=== PATIENT | female | born 1990 | race Caucasian/White ===

== ENCOUNTER 2021-02-14 07:38 | Inpatient (IN) ==
[2021-02-14] MEDS ORDERED: OXYTOCIN 30 UNITS/500 ML BAG IV PRN ×3 (07:40→22:33)
[2021-02-14 08:01] LABS: Hematocrit (blood only) 40.3 % (37-47); Mean Corpuscular Hemoglobin 29.8 pg (25-34); Mean Corpuscular Hgb Conc 34.7 g/dL (32-36); Mean Corpuscular Volume 85.7 fL (80-100); Mean Platelet Volume 11.3 fL (7.4-10.4); Platelet Count 212 K/uL (130-400); RDW Coefficient of Variation 13.7 % (11.5-14.5); RDW Standard Deviation 42.9 fL (36.4-46.3); White Blood Count 8.61 K/uL (4.8-10.8)
[2021-02-14] MEDS: LACTATED RINGER'S 1,000 ML IV PRN ×4 (09:18→20:37)
--- NOTE | 2021-02-14 09:20 | History & Physical Report ---
Date of Service February 14, 2021 Assessment & Plan (1) with 39 completed weeks gestation: (2) PUPP (pruritic urticarial papules and plaques of ): (3) Unfavorable cervix in term : Admission and Anticipated Discharge Date Admission Date: February 14, 2021 Patient is being admitted for induction because of pupps that is unrelenting and not responsive to outpatient therapy. She is 39 weeks by good dating. Cx unfavorable so cervical murphy placed and will start pit at the same time. fetus category one. epidural on demand. arom as indicated. Anticipae . History of Present Illness Chief Complaint: induction Primary Care Provider: JACKIE García Patient is a 31yowf with iup at 39 0/7 weeks who presents to labor and delivery for elective induction for pupps. Patient for the last two weeks has had a worsening very itchy rash. It is not on the palms or soles but just about everywhere else particularly on the thighs and belly. It is red, raised and confluent on the thigs particularly. Also petechial on the abdomen, upper arms, lower legs. Nothing she has used to help has been helpful. She is scratching herself raw. She tried taking benadryl, but she felt it made the baby have decreased activity and really worried her. She had bile acids drawn which were negative. I suspect this is a pupps type rash. Since she is 39 weeks I offered her induction and she has accepted. The has been otherwise uncomplicated. She does have an unfavorable cervix labs--O+/ab-/ri/rprnr/hepb-/hiv-/gc/ct-/ cf/sma neg/panorama low risk/gbs neg/ afp neg Allergies Allergy/AdvReac Type Severity Reaction Status Date / Time neomycin Allergy Intermediate itchy eyes Verified 02/14/21 07:51 Home Medications Medication Instructions Recorded Confirmed Type PNV cmb#95-ferrous fumarate-FA 1 tab PO DAILY 02/04/21 02/14/21 History [] escitalopram oxalate [Lexapro] 5 mg PO DAILY 02/04/21 02/14/21 History hydrocortisone 1 % topical cream 1 applic TOPICAL QID PRN 02/13/21 02/14/21 History Patient History Medical History Chemical Common migraine without aura Depression with anxiety Ectopic Hx of varicella Surgical History History of ovarian cystectomy History of unilateral salpingectomy Family History Denies family history of Ovarian cancer Breast cancer Colorectal cancer Social History Smoking Status: Never smoker Second Hand Exposure: No; Hx Alcohol Use: No Hx Substance Use: No Preferred Language: Hebrew Communication Ability: Effective 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 Required: No Beliefs That Will Affect Care: None marital status: marital status details: Augusto Luu (33) [phone] Current Living Situation: Spouse Current Living Situation Comment: lives with spouse, 2 dogs, 1 cat, does not change litter current occupational status: employed current occupation: [employer] Other Information That Helps Us Care for You: No Feels Safe at Home: Yes Safety Concerns: Feels Safe At This Time Assistive Devices: Glasses OB History g1--12/13--right ectopic with salpingectomy g2--05/19--sab g3--current [employer] History noncontributory Physical Exam Constitutional: WD/WN, vitals as above Skin: rash over thighs, belly. lower ext and arms--some red raised and confluent, others petechial. excoriations all over body. Psychiatric: A+Ox3, euthymic affect Genitourinary: cx--50/-2/mid/mod toco--skylar efm--130s with mod variabiity, accels to 150s, no decels speculum placed and cervix visualized, murphy bulb placed through cervix and balloon inflated with 30cc sterile water. tolerated well. Results & Data ([facility]) Vital Signs (Past 12 Hours) Vital Signs Temp Pulse Resp BP 02/14/21 08:07 37 C 20 02/14/21 07:49 104 H 123/86 Code Status & VTE Plan VTE Prophylaxis Plan VTE Prophylaxis will be ordered: No Coding Level of Care Code None Diagnoses with 39 completed weeks gestation Z3A.39 PUPP (pruritic urticarial papules and plaques of ) O26.86 Unfavorable cervix in term O34.40
--- NOTE | 2021-02-14 12:39 | Labor Progress Brief Note ---
Date of Service February 14, 2021 Subjective Patient was up to the br and then got back into bed and decel to 70s noted. murphy bulb fell out Assessment & Plan (1) with 39 completed weeks gestation: Admission and Anticipated Discharge Date Admission Date: February 14, 2021 episode of decel has resolved and both resolved after contractions spaced. reassuring now. Plan to keep pit off for now. will get epidural, then plan arom and will see what happens. Will continue to monitor baby closely. movement clearly heard after recovery. Physical Exam Constitutional: WD/WN, vitals as above Psychiatric: A+Ox3, euthymic affect Genitourinary: cx--/-2 toco--episode of tachysystole just when back from the BR is likely cause of decel, has had intermittent episodes of tachysystole when strip reviewed. pit turned off, o2 on , position changed, eventually to hands/knees efm--mostly category one strip , was 130s with mod variability, accels to 150s. has had two decels after episodes of tachystystole, first was at 10:30 for about 2-3 minutes with spontaneous resolution. the second episode lasted about 5 minutes. now fht in 130s with mod variability Results & Data ([facility]) Vital Signs (Past 12 Hours) Vital Signs Temp Pulse Resp BP Pulse Ox 02/14/21 12:31 75 100 02/14/21 12:26 98 H 100 02/14/21 12:21 106 H 98 02/14/21 12:12 36.8 C 78 18 135/90 02/14/21 11:09 84 116/70 02/14/21 10:20 92 H 140/85 02/14/21 09:19 90 132/90 02/14/21 08:07 37 C 20 02/14/21 07:49 104 H 123/86 Coding Level of Care Code None Diagnoses with 39 completed weeks gestation Z3A.39
[2021-02-14] MEDS ORDERED: SODIUM CHLORIDE 0.9% INJ 10 ML VIAL ONE (13:49)
[2021-02-14] MEDS ORDERED: BUPIVACAINE 0.25% 30 ML VIAL ONE ×2 (13:49→19:04)
[2021-02-14] MEDS ORDERED: ePHEDrine sulfate 50 MG/ML AMP ONE (13:49)
[2021-02-14] MEDS ORDERED: fentaNYL citrate 100 MCG/2 ML VIAL ONE (13:50)
[2021-02-14] MEDS ORDERED: fentaNYL 2MCG/ML ROPIVACAINE 1.25MG/ML 100 ML BAG EPI ONE (13:50)
[2021-02-14] MEDS ORDERED: fentaNYL 2MCG/ML ROPIVACAINE 1.25MG/ML 100 ML BAG EPI PRN (13:56)
[2021-02-14] MEDS ORDERED: ONDANSETRON INJ 2 MG/ML 2 ML VIAL IV PRN (13:56)
[2021-02-14] MEDS ORDERED: NALOXONE HCL 1 MG in SODIUM CHLORIDE 0.9% 1000ML 1,000 ML IV PRN (13:56)
[2021-02-14] MEDS ORDERED: NALOXONE HCL 0.4 MG/1 ML VIAL/CARP IV PRN (13:56)
[2021-02-14] MEDS ORDERED: ePHEDrine sulfate 50 MG/ML AMP IV PRN (13:56)
[2021-02-14] MEDS ORDERED: diphenhydrAMINE 50 MG/ML VIAL IV PRN (13:56)
--- NOTE | 2021-02-14 14:01 | Anesthesiology Consultation ---
Date of Service February 14, 2021 Assessment & Plan (1) Encounter for pre-operative examination: Chart Review Chart Review: Patient NOT seen in Pre Admission Testing and Acceptable Risk for Labor Epidural Consults Requested none History Height/Weight Height: 5 ft 5 in Weight: 92.533 kg Allergies Allergy/AdvReac Type Severity Reaction Status Date / Time neomycin Allergy Intermediate itchy eyes Verified 02/14/21 07:51 Medications Home Medications Medication Instructions Recorded Confirmed Last Taken PNV cmb#95-ferrous fumarate-FA 1 tab PO DAILY 02/04/21 02/14/21 02/14/21 [] escitalopram oxalate [Lexapro] 5 mg PO DAILY 02/04/21 02/14/21 02/14/21 hydrocortisone 1 % topical cream 1 applic TOPICAL QID PRN 02/13/21 02/14/21 Unknown Active Medications Generic Name Dose Route Start Last Admin Trade Name Freq PRN Reason Stop Dose Admin Lactated Ringer's 1,000 mls @ 125 mls/hr 02/14/21 07:40 02/14/21 13:36 Lr IV 02/16/21 07:39 999 mls/hr .Q8H PRN Infusion L&D Protocol Protocol Oxytocin 30 units in 500 mls @ 0 mls/hr 02/14/21 07:40 02/14/21 12:23 Pitocin IV 02/16/21 07:39 0 units/hr .Q0M PRN 0 mls/hr Labor Induction/Augmentation Titration Protocol 0 UNITS/HR Past Medical History Medical History Chemical Common migraine without aura Depression with anxiety Ectopic Hx of varicella Exercise / Class Metabolic Activity II 4-5 Yardwork/Stairs/Walk up hill Past Family History Family History Denies family history of Ovarian cancer Breast cancer Colorectal cancer Past Surgical History Surgical History History of ovarian cystectomy History of unilateral salpingectomy Past Anesthesia History No Hx of Anesthesia Complications and No Family Hx of Anesthesia Complications History of PONV No Hx of PONV and No Hx of Motion Sickness Social History Smoking Status: Never smoker Do You Dip or Chew Tobacco: No Hx Alcohol Use: No Hx Substance Use: No substance use type: does not use Physical Exam Vital Signs Last Vital Signs Temp 36.8 C 02/14/21 12:12 Pulse 77 02/14/21 13:54 Resp 18 02/14/21 12:12 BP 141/84 H 02/14/21 13:54 Pulse Ox 100 02/14/21 13:41 Testing Laboratory Results 02/14/21 07:52
--- NOTE | 2021-02-14 16:35 | Labor Progress Brief Note ---
Date of Service February 14, 2021 Subjective comfortable with epidural Assessment & Plan (1) with 39 completed weeks gestation: Admission and Anticipated Discharge Date Admission Date: February 14, 2021 continue current management. Gentle pit until good contraction pattern. fetus category one. anticipate . Physical Exam Constitutional: WD/WN, vitals as above Psychiatric: A+Ox3, euthymic affect Genitourinary: cx--5/80/-2, when went to arom, irrgularity to the membranes felt, not pulsatile and did not feel like hand. Can feel cephalic. BSUS--no cord or anything in front of the head. can see hand up by face on reexam--still feel, not pulsatile, just feels irregular and a bit thicker arom not in the thickened area--clear fluid, large mucous passed, unable to palpate any abnl after arom, no blood noted, ? feeling mucous toco--irregular contractions, pit at 1 efm--120 with mod varibiltiy, accels present, no further decels Results & Data ([facility]) Vital Signs (Past 12 Hours) Vital Signs Temp Pulse Resp BP Pulse Ox 02/14/21 16:25 75 130/81 02/14/21 16:24 72 100 02/14/21 16:19 84 121/95 100 02/14/21 16:14 79 133/86 95 02/14/21 16:12 76 91 02/14/21 16:10 73 134/80 02/14/21 16:09 86 100 02/14/21 16:05 75 131/83 02/14/21 16:04 77 99 02/14/21 15:59 74 131/80 99 02/14/21 15:54 81 133/85 98 02/14/21 15:49 74 133/82 100 02/14/21 15:44 87 125/81 98 02/14/21 15:39 78 130/88 98 02/14/21 15:34 74 130/88 99 02/14/21 15:29 88 128/85 99 02/14/21 15:24 78 135/87 100 02/14/21 15:19 70 128/80 99 02/14/21 15:17 79 90 02/14/21 15:14 77 145/86 H 100 02/14/21 15:10 68 136/83 03/18/21 15:09 74 99 03/18/21 15:05 37.1 C 16 1821 15:04 84 99 18/21 15:03 82 135/78 18/21 14:59 71 139/80 99 18/21 14:54 72 133/87 100 18/21 14:50 76 130/83 18/21 14:49 81 100 /18/21 14:44 77 130/86 99 18/21 14:39 83 99 18/21 14:38 78 127/80 18/21 14:36 73 135/80 18/21 14:34 79 130/83 100 18/21 14:32 81 128/83 18/ 14:30 81 127/81 18/21 14:29 80 100 18/21 14:28 78 125/82 18/21 14:27 82 130/82 18/21 14:24 90 131/84 100 18/21 14:22 92 H 131/84 18/21 14:19 104 H 100 18/21 14:14 88 100 18/21 14:09 91 H 100 18/21 13:54 77 141/84 H 18/21 13:41 85 100 18/21 13:36 76 100 /18/21 13:31 75 100 /18/21 13:26 77 100 /18/21 13:21 76 100 /18/21 13:16 74 100 /18/21 13:11 76 100 18/21 13:06 86 99 18/21 13:01 75 100 03/18/21 12:56 77 100 03/18/21 12:51 78 100 03/18/21 12:46 83 100 /18/21 12:41 81 100 /18/21 12:36 80 100 /18/21 12:31 75 100 03/18/21 12:26 98 H 100 /18/21 12:21 106 H 98 /18/21 12:12 36.8 C 78 18 135/90 18/21 11:09 84 116/70 18/21 10:20 92 H 140/85 03/18/21 09:19 90 132/90 02/14/21 08:07 37 C 20 02/14/21 07:49 104 H 123/86 Coding Level of Care Code None Diagnoses with 39 completed weeks gestation Z3A.39
[2021-02-14] MEDS ORDERED: NURSING L&D Epidural Breakthrough Pain Update ONE ×2 (18:41→18:55)
--- NOTE | 2021-02-14 19:20 | Communication Note ---
Date of Service: February 14, 2021 pain increased. bolused 8ml of 0.25% bup in divided doses. vss. pain improved
--- NOTE | 2021-02-14 19:32 | Labor Progress Brief Note ---
Date of Service February 14, 2021 Subjective Got epidural redosed and now comfortable Assessment & Plan (1) with 39 completed weeks gestation: Admission and Anticipated Discharge Date Admission Date: February 14, 2021 making progress, recheck in 1 hr. May need iupc if no signficant change at that time. fetus category one. Physical Exam Constitutional: WD/WN, vitals as above Psychiatric: A+Ox3, euthymic affect Genitourinary: cx--6+90/-1 toco--q2-3min, pit at 7 efm--120s with mod variability, accels to 150s, no decels Results & Data ([facility]) Vital Signs (Past 12 Hours) Vital Signs Temp Pulse Resp BP Pulse Ox 02/14/21 19:24 77 153/100 H 100 02/14/21 19:23 81 145/98 H 02/14/21 19:20 76 145/95 H 02/14/21 19:19 81 100 02/14/21 19:14 78 100 02/14/21 19:12 91 H 151/95 H 02/14/21 19:11 77 151/93 H 02/14/21 19:09 90 100 02/14/21 19:04 85 100 02/14/21 19:00 36.9 C 20 02/14/21 18:59 78 100 02/14/21 18:55 71 141/95 H 02/14/21 18:54 72 100 02/14/21 18:49 76 100 02/14/21 18:44 74 100 02/14/21 18:40 71 135/93 02/14/21 18:39 72 100 02/14/21 18:34 72 100 02/14/21 18:29 82 100 02/14/21 18:25 71 141/90 H 02/14/21 18:24 77 100 02/14/21 18:19 73 100 02/14/21 18:14 82 99 02/14/21 18:11 73 147/95 H 02/14/21 18:09 84 100 02/14/21 18:04 71 100 02/14/21 18:03 22 02/14/21 17:59 91 H 100 02/14/21 17:54 92 H 142/88 H 100 02/14/21 17:49 91 H 132/85 99 03/18/21 17:44 91 H 124/80 100 03/18/21 17:39 98 H 130/83 99 /18/21 17:34 103 H 142/86 H 99 /18/21 17:29 106 H 137/89 100 0318/21 17:24 93 H 125/87 98 /18/21 17:20 85 127/86 0318/21 17:19 81 99 18/21 17:14 88 132/85 99 18/21 17:09 97 H 127/82 98 18/21 17:04 85 124/79 99 18/21 17:00 90 126/83 18/21 16:59 89 100 /18/21 16:54 100 H 132/82 100 18/21 16:50 96 H 119/72 18/21 16:49 92 H 100 18/21 16:44 98 H 130/81 100 18/21 16:40 87 128/77 18/21 16:39 88 100 18/21 16:35 94 H 129/83 18/21 16:34 96 H 100 18/21 16:29 86 133/84 100 /18/21 16:25 75 130/81 18/21 16:24 72 100 18/21 16:19 84 121/95 100 18/21 16:14 79 133/86 95 18/21 16:12 76 91 18/21 16:10 73 134/80 18/21 16:09 86 100 18/21 16:05 75 131/83 18/21 16:04 77 99 18/21 15:59 74 131/80 99 03/18/21 15:54 81 133/85 98 /18/21 15:49 74 133/82 100 18/21 15:44 87 125/81 98 /18/21 15:39 78 130/88 98 03/18/21 15:34 74 130/88 99 /18/21 15:29 88 128/85 99 03/18/21 15:24 78 135/87 100 18/21 15:19 70 128/80 99 18/21 15:17 79 90 18/21 15:14 77 145/86 H 100 03/18/21 15:10 68 136/83 03/18/21 15:09 74 99 03/18/21 15:05 37.1 C 16 21 15:04 84 99 0318/21 15:03 82 135/78 18/21 14:59 71 139/80 99 /18/21 14:54 72 133/87 100 /18/21 14:50 76 130/83 18/21 14:49 81 100 03/18/21 14:44 77 130/86 99 /18/21 14:39 83 99 /18/21 14:38 78 127/80 /18/21 14:36 73 135/80 /18/21 14:34 79 130/83 100 /18/21 14:32 81 128/83 18/21 14:30 81 127/81 18/21 14:29 80 100 /18/21 14:28 78 125/82 18/21 14:27 82 130/82 18/21 14:24 90 131/84 100 03/18/21 14:22 92 H 131/84 18/21 14:19 104 H 100 18/21 14:14 88 100 03/18/21 14:09 91 H 100 18/21 13:54 77 141/84 H 18/21 13:41 85 100 /18/21 13:36 76 100 03/18/21 13:31 75 100 03/18/21 13:26 77 100 03/18/21 13:21 76 100 03/18/21 13:16 74 100 03/18/21 13:11 76 100 03/18/21 13:06 86 99 03/18/21 13:01 75 100 03/18/21 12:56 77 100 03/18/21 12:51 78 100 03/18/21 12:46 83 100 03/18/21 12:41 81 100 03/18/21 12:36 80 100 03/18/21 12:31 75 100 03/18/21 12:26 98 H 100 03/18/21 12:21 106 H 98 /18/21 12:12 36.8 C 78 18 135/90 18/21 11:09 84 116/70 03/18/21 10:20 92 H 140/85 02/14/21 09:19 90 132/90 02/14/21 08:07 37 C 20 02/14/21 07:49 104 H 123/86 Coding Level of Care Code None Diagnoses with 39 completed weeks gestation Z3A.39
[2021-02-14] MEDS ORDERED: TERBUTALINE SULFATE 1 MG/ML VIAL ONE (19:36)
--- NOTE | 2021-02-14 20:56 | Labor Progress Brief Note ---
Date of Service February 14, 2021 Subjective comfortable Assessment & Plan (1) with 39 completed weeks gestation: Admission and Anticipated Discharge Date Admission Date: February 14, 2021 labor down for 30 min and then start pushing. Fetus reassuring. anticipate . Physical Exam Constitutional: WD/WN, vitals as above Psychiatric: A+Ox3, euthymic affect Genitourinary: cx--c/c/+1-2 toco==q 2-3min, pit at 8 efm--120s with mod variability, accels to 150s, ? early decel Results & Data ([facility]) Vital Signs (Past 12 Hours) Vital Signs Temp Pulse Resp BP Pulse Ox 02/14/21 20:51 113 H 92 02/14/21 20:49 106 H 99 02/14/21 20:44 78 100 02/14/21 20:39 74 100 02/14/21 20:34 77 100 02/14/21 20:29 76 100 02/14/21 20:24 76 144/90 H 100 02/14/21 20:19 77 100 02/14/21 20:14 83 100 02/14/21 20:10 79 133/83 02/14/21 20:09 85 100 02/14/21 20:04 98 H 98 02/14/21 20:02 18 02/14/21 19:59 93 H 100 02/14/21 19:56 104 H 137/88 02/14/21 19:54 98 H 100 02/14/21 19:50 87 155/85 H 02/14/21 19:49 88 100 02/14/21 19:47 88 90 02/14/21 19:44 94 H 100 02/14/21 19:40 86 145/85 H 02/14/21 19:39 87 100 02/14/21 19:34 73 100 02/14/21 19:29 77 100 02/14/21 19:24 77 153/100 H 100 02/14/21 19:23 81 145/98 H 02/14/21 19:20 76 145/95 H 02/14/21 19:19 81 100 02/14/21 19:14 78 100 02/14/21 19:12 91 H 151/95 H 02/14/21 19:11 77 151/93 H 03/18/21 19:09 90 100 03/18/21 19:04 85 100 18/21 19:00 36.9 C 20 1821 18:59 78 100 18/21 18:55 71 141/95 H 18/21 18:54 72 100 18/21 18:49 76 100 18/21 18:44 74 100 18/21 18:40 71 135/93 18/21 18:39 72 100 1821 18:34 72 100 18/21 18:29 82 100 18/21 18:25 71 141/90 H 1821 18:24 77 100 18/21 18:19 73 100 18/21 18:14 82 99 1821 18:11 73 147/95 H 1821 18:09 84 100 1821 18:04 71 100 1821 18:03 22 1821 17:59 91 H 100 1821 17:54 92 H 142/88 H 100 1821 17:49 91 H 132/85 99 18/21 17:44 91 H 124/80 100 18/21 17:39 98 H 130/83 99 18/21 17:34 103 H 142/86 H 99 18/21 17:29 106 H 137/89 100 18/21 17:24 93 H 125/87 98 18/21 17:20 85 127/86 18/21 17:19 81 99 18/21 17:14 88 132/85 99 1821 17:09 97 H 127/82 98 1821 17:04 85 20 124/79 99 18/21 17:00 90 126/83 18/21 16:59 89 100 18/21 16:54 100 H 132/82 100 18/21 16:50 96 H 119/72 18/21 16:49 92 H 100 18/21 16:44 98 H 130/81 100 18/21 16:40 87 128/77 18/21 16:39 88 100 18/21 16:35 94 H 129/83 18/21 16:34 96 H 100 03/18/21 16:29 86 133/84 100 03/18/21 16:25 75 130/81 03/18/21 16:24 72 100 03/18/21 16:19 84 121/95 100 /18/21 16:14 79 133/86 95 /18/21 16:12 76 91 18/21 16:10 73 134/80 /18/21 16:09 86 100 /18/21 16:05 75 131/83 18/21 16:04 77 99 /18/21 16:03 18 /18/21 15:59 74 131/80 99 03/18/21 15:54 81 133/85 98 /18/21 15:49 74 133/82 100 /18/21 15:44 87 125/81 98 /18/21 15:39 78 130/88 98 /18/21 15:34 74 130/88 99 /18/21 15:29 88 128/85 99 /18/21 15:24 78 135/87 100 18/21 15:19 70 128/80 99 /18/21 15:17 79 90 18/21 15:14 77 145/86 H 100 18/21 15:10 68 136/83 18/21 15:09 74 99 18/21 15:05 37.1 C 16 21 15:04 84 99 18/21 15:03 82 135/78 /18/21 14:59 71 139/80 99 /18/21 14:54 72 133/87 100 /18/21 14:50 76 130/83 /18/21 14:49 81 100 /18/21 14:44 77 130/86 99 /18/21 14:39 83 99 /18/21 14:38 78 127/80 03/18/21 14:36 73 135/80 03/18/21 14:34 79 130/83 100 03/18/21 14:32 81 128/83 03/18/21 14:30 81 127/81 03/18/21 14:29 80 100 03/18/21 14:28 78 125/82 03/18/21 14:27 82 130/82 03/18/21 14:24 90 131/84 100 03/18/21 14:22 92 H 131/84 02/14/21 14:19 104 H 100 02/14/21 14:14 88 100 02/14/21 14:09 91 H 100 02/14/21 13:54 77 141/84 H 02/14/21 13:41 85 100 02/14/21 13:36 76 100 02/14/21 13:31 75 100 02/14/21 13:26 77 100 02/14/21 13:21 76 100 02/14/21 13:16 74 100 02/14/21 13:11 76 100 02/14/21 13:06 86 99 02/14/21 13:01 75 100 02/14/21 12:56 77 100 02/14/21 12:51 78 100 02/14/21 12:46 83 100 02/14/21 12:41 81 100 02/14/21 12:36 80 100 02/14/21 12:31 75 100 02/14/21 12:26 98 H 100 02/14/21 12:21 106 H 98 02/14/21 12:12 36.8 C 78 18 135/90 02/14/21 11:09 84 116/70 02/14/21 10:20 92 H 140/85 02/14/21 09:19 90 132/90 Coding Level of Care Code None Diagnoses with 39 completed weeks gestation Z3A.39
[2021-02-14] MEDS ORDERED: ACETAMINOPHEN 325 MG TAB PO PRN (22:08)
--- NOTE | 2021-02-14 22:16 | Delivery Summary ---
Vaginal Delivery Summary Date of Service February 14, 2021 Pre-operative Diagnosis: at 39 weeks severe pupps Post-operative Diagnosis: same Procedure: murphy for cervical ripening pitocin induction epidural arom second degree and bilateral labial lacerations and repair EBL: 400cc Anesthesia: epidural Procedure: The patient pushed for about 20 min to deliver a viable male infant in doa position, restituted to angel. The nose and mouth were bulb suctioned on the perineum and the rest of the infant was then delivered without difficulty. The baby was vigorous. The nose and mouth were again bulb suctioned and the was placed in the maternal abdomen for drying and attention. Cord was clamped and cut at one minute of life. Cord blood and segment obtained. Placenta delivered spontaneous, intact with a three vessel cord. Cervix/sulci/rectum were intact. A second degree perineal laceration and bilateral labial lacs were repaired in the normal standard fashion. Hemostasis obtained with dilute pitocin and fundal massage. Apgars were 8/9. Mother and baby doing well at the end of the delivery. ON examination of the placenta, some placental tissue appeared to be located in between the membranes coming off from the side of the placenta body proper. This did not actually appear that it had been attached to the uterine wall, but was contained between the membranes. I suspect this was what I was palpating just prior to arom. Vaginal Delivery Summary [facility] Vaginal Delivery Charge Delivery Type Details:
[2021-02-14] MEDS ORDERED: HYDROCORTISONE ACETATE 25 MG SUPP PR PRN (22:33)
[2021-02-14] MEDS ORDERED: SUPERCREAM 0.870% 15 GM JAR EXT PRN (22:33)
[2021-02-14] MEDS ORDERED: bisacodyL 10 MG SUPP PR PRN (22:33)
[2021-02-14] MEDS ORDERED: oxyCODONE/ACETAMINOPHEN 5mg/325mg TAB PO PRN (22:33)
[2021-02-14] MEDS ORDERED: DIPHTHERIA/TETANUS/PERTUSSIS 0.5 ML SYR/VIAL IM ONE (22:33)
[2021-02-14] MEDS ORDERED: BENZOCAINE 20% AER SPR 82.5 GM CAN EXT PRN (22:33)
--- NOTE | 2021-02-14 22:50 | Communication Note ---
Date of Service: February 14, 2021 Note made of pressures that have been creeping up over the last few hours. First noted around 6pm. 140-150/90s. Rare sbp of 160. Patient has no s/s of pet. Will check labs and continue to monitor.
[2021-02-14 23:21] LABS: Hematocrit (blood only) 36.2 % (37-47); Hemoglobin 12.6 g/dL (12.0-16.0); Mean Corpuscular Hemoglobin 30.1 pg (25-34); Mean Corpuscular Hgb Conc 34.8 g/dL (32-36); Mean Corpuscular Volume 86.6 fL (80-100); Mean Platelet Volume 11.4 fL (7.4-10.4); Platelet Count 207 K/uL (130-400); RDW Coefficient of Variation 13.9 % (11.5-14.5); RDW Standard Deviation 43.9 fL (36.4-46.3); Red Blood Count 4.18 M/uL (4.2-5.4); White Blood Count 16.03 K/uL (4.8-10.8)
[2021-02-14 23:55] LABS: Albumin Level 2.5 gm/dl (3.4-5.0); BUN Creatinine Ratio 13.2 (10-20); Calcium 8.8 mg/dl (8.5-10.1); Creatinine Clr Calc Pharmacy 127.9 ml/min; Est GFR (African American) 130.6; Est GFR (Non-African American) 112.7; Potassium 3.6 mmol/L (3.5-5.1)
[2021-02-14 23:58] LABS: Albumin Globulin Ratio 0.7 (0.9-2); Bilirubin,Total 1.2 mg/dl (0.2-1); Globulin 3.5 gm/dl (2.5-4.0)
--- NOTE | 2021-02-15 02:20 | Communication Note ---
Date of Service: February 15, 2021 Pressures are improved and labs are all wnl. Do not suspect PET at this time. Will continue to monitor closely.
[2021-02-15] MEDS: IBUPROFEN 600 MG TAB PO PRN ×4 (04:01→23:56)
--- NOTE | 2021-02-15 05:15 | Obstetrical Progress Note ---
Date of Service <Bin Olivares MD - Last Filed: 02/15/21 07:13> February 15, 2021 Assessment & Plan <Bin Olivares MD - Last Filed: 02/15/21 07:13> (1) : - PNL: Rh pos, RI, GBS neg, COVID neg - Feels well today. Eating well, voiding well, ambulating well - Pain well controlled with analgesics - Routine care -- OOB, ambulation, diet progression as tolerated - After discharge will have 6 week follow-up with Dr. Beauchamp Subjective <Bin Olivares MD - Last Filed: 02/15/21 07:13> Valerie is a 31 y/o female who is PPD #1 following at 39+ weeks. She reports feeling well overall this morning. Light abdominal cramping and 2/10 pain well managed on analgesics. Voiding well. Tolerating meals overnight withou t difficulty. Patient has been able to ambulate some. Is passing gas, no bowel movement yet. Has persistent lochia with some improvement this morning. Currently . Review of Systems Denies fever or chills. Denies shortness of breath or cough. Denies chest pain. Denies breast pain. Denies dysuria. Denies leg pain or leg swelling. Denies headache or changes in vision. Physical Exam <Bin Olivares MD - Last Filed: 02/15/21 07:13> General: Alert, oriented. No acute distress. Cardiac: Regular rate and rhythm. No murmurs. Respiratory: Clear to auscultation bilaterally a/p, no wheezes/rales/rhonchi. No increased work of breathing. Symmetrical chest rise. No respiratory distress. Abdomen: Soft, nontender, nondistended. Bowel sounds present. Uterus: Uterine fundus firm, palpable ~1 cm below umbilicus. Lower Extremities: No lower extremity edema or swelling. No deep calf pain. Kayla's negative bilaterally. Results & Data ([facility]) <Bin Olivares MD - Last Filed: 02/15/21 07:13> Vital Signs (Past 12 Hours) Vital Signs Temp Pulse Pulse Resp BP BP Pulse Ox 02/15/21 03:35 36.7 C 90 17 141/87 H 100 02/15/21 00:35 37.1 C 91 H 16 126/84 98 02/15/21 00:00 37.4 C 85 18 134/86 02/14/21 23:45 94 H 123/79 02/14/21 23:30 96 H 123/79 02/14/21 23:15 96 H 128/80 02/14/21 23:00 37.4 C 89 18 131/84 02/14/21 22:54 86 136/93 02/14/21 22:39 111 H 151/94 H 02/14/21 22:24 47 L 152/89 H 02/14/21 22:09 100 H 159/77 H 02/14/21 22:02 134 H 146/76 H 02/14/21 21:54 100 H 145/77 H 02/14/21 21:40 100 H 156/85 H 02/14/21 21:39 104 H 100 02/14/21 21:34 118 H 98 02/14/21 21:29 122 H 100 02/14/21 21:26 100 H 157/97 H 02/14/21 21:24 103 H 100 02/14/21 21:19 101 H 100 02/14/21 21:14 94 H 100 02/14/21 21:09 104 H 152/93 H 100 02/14/21 21:04 95 H 100 02/14/21 20:59 107 H 100 02/14/21 20:57 114 H 164/99 H 02/14/21 20:55 120 H 161/109 H 02/14/21 20:54 132 H 100 02/14/21 20:51 113 H 92 02/14/21 20:49 106 H 99 02/14/21 20:44 78 100 1821 20:39 74 100 1821 20:34 77 100 21 20:29 76 100 18 20:24 76 144/90 H 100 02/14/21 20:19 77 100 18 20:14 83 100 18 20:10 79 133/83 02/14/21 20:09 85 100 02/14/21 20:04 98 H 98 02/14/21 20:02 18 03/18/21 19:59 93 H 100 18/21 19:56 104 H 137/88 18/21 19:54 98 H 100 18/21 19:50 87 155/85 H 18/21 19:49 88 100 18/21 19:47 88 90 18/21 19:44 94 H 100 18/21 19:40 86 145/85 H 18/21 19:39 87 100 18/21 19:34 73 100 18/21 19:29 77 100 18/21 19:24 77 153/100 H 100 18/21 19:23 81 145/98 H 18/21 19:20 76 145/95 H 18/21 19:19 81 100 18/21 19:14 78 100 18/21 19:12 91 H 151/95 H 18/21 19:11 77 151/93 H 18/21 19:09 90 100 18/21 19:04 85 100 18/21 19:00 36.9 C 20 1821 18:59 78 100 18/21 18:55 71 141/95 H 18/21 18:54 72 100 18/21 18:49 76 100 18/21 18:44 74 100 18/21 18:40 71 135/93 18/21 18:39 72 100 18/21 18:34 72 100 18/21 18:29 82 100 18/21 18:25 71 141/90 H 18/21 18:24 77 100 18/21 18:19 73 100 18/21 18:14 82 99 18/21 18:11 73 147/95 H 18/21 18:09 84 100 18/21 18:04 71 100 18/21 18:03 22 18/21 17:59 91 H 100 18/21 17:54 92 H 142/88 H 100 18/21 17:49 91 H 132/85 99 0318/21 17:44 91 H 124/80 100 18/21 17:39 98 H 130/83 99 18/21 17:34 103 H 142/86 H 99 03/18/21 17:29 106 H 137/89 100 02/14/21 17:24 93 H 125/87 98 02/14/21 17:20 85 127/86 02/14/21 17:19 81 99 <Audrey Beauchamp MD, FACOG - Last Filed: 02/15/21 07:14> Co-Signing Physician Notes Resident Physician Supervision Note: I interviewed and examined the patient. Discussed with Dr. June and agree with findings and plan as documented in the note. Any exceptions or clarifications are listed here: Doing well. Routine care. Notes still pretty itchy but maybe a little better. discussed will take some time to improve. Documented By: Audrey Beauchamp MD, FACOG Resident Activity Tracking <Bin Olivares MD - Last Filed: 02/15/21 07:13> Resident Involvement: Resident Care Provided Care Provided: OB Delivery
[2021-02-15 06:07] LABS: Hematocrit (blood only) 34.8 % (37-47); Hemoglobin 11.7 g/dL (12.0-16.0)
[2021-02-15] MEDS: ESCITALOPRAM OXALATE 10 MG TAB PO SCH (09:12)
[2021-02-15] MEDS: DOCUSATE SODIUM 100 MG CAP PO SCH ×2 (09:12→20:14)
[2021-02-15] MEDS: PRENATAL VITAMIN 1 TAB PO SCH (09:12)
--- NOTE | 2021-02-15 09:33 | Anesthesia Procedure Note ---
Date of Service February 15, 2021 Anesthesia Post Epidural Note Vital Signs Vital Signs: Temp Pulse Resp BP Pulse Ox 36.7 C 90 17 141/87 H 100 02/15/21 03:35 02/15/21 03:35 02/15/21 03:35 02/15/21 03:35 02/15/21 03:35 Pain Intensity Abdomen: Pain Intensity: 2 Notes Mental Status: alert / awake / arousable and participated in evaluation Nausea / Vomiting: adequately controlled Pain: adequately controlled Airway Patency, RR, SpO2: stable & adequate BP & HR: stable & adequate Hydration State: stable & adequate Neuraxial Anesthesia: was administered and sensory block is resolving Anesthetic Complications: no major complications apparent and Pt Satisfied with anesthetic care Epidural: Removed without complications and With tip intact Notes: Epidural site clean, dry and intact. No signs of edema, erythema or bruising at insertion site. Pt instructed to request anesthesia if she has residual lower extremity numbness or if she develops lower extremity pain or weakness, back pain or headache.
[2021-02-15] MEDS ORDERED: bisacodyL 5 MG TABEC PO SCH (20:00)
--- NOTE | 2021-02-16 05:34 | Obstetrical Progress Note ---
Date of Service <Bin Olivares MD - Last Filed: 02/16/21 06:56> February 16, 2021 Assessment & Plan <Bin Olivares MD - Last Filed: 02/16/21 06:56> (1) : - PNL: Rh pos, RI, GBS neg, COVID neg - Feels well today. Eating well, voiding well, ambulating well - Pain well controlled with analgesics - Routine care -- OOB, ambulation, diet progression as tolerated - After discharge will have 6 week follow-up with Dr. Beauchamp Subjective <Bin Olivares MD - Last Filed: 02/16/21 06:56> Valerie is a 31 y/o female who is PPD #2 following at 39+ weeks. She reports feeling well overall this morning. Light abdominal cramping and 2/10 pain well managed on analgesics. Voiding well. Tolerating meals overnight withou t difficulty. Patient has been able to ambulate some. Is passing gas and had a bowel movement. Has persistent lochia with some improvement this morning. Currently without difficulty. Review of Systems Denies fever or chills. Denies shortness of breath or cough. Denies chest pain. Denies breast pain. Denies dysuria. Denies leg pain or leg swelling. Denies headache or changes in vision. Physical Exam <Bin Olivares MD - Last Filed: 02/16/21 06:56> General: Alert, oriented. No acute distress. Cardiac: Regular rate and rhythm. No murmurs. Respiratory: Clear to auscultation bilaterally a/p, no wheezes/rales/rhonchi. No increased work of breathing. Symmetrical chest rise. No respiratory distress. Abdomen: Soft, nontender, nondistended. Bowel sounds present. Uterus: Uterine fundus firm, palpable ~2 cm below umbilicus. Lower Extremities: No lower extremity edema or swelling. No deep calf pain. Kayla's negative bilaterally. Results & Data ([facility]) <Bin Olivares MD - Last Filed: 02/16/21 06:56> Vital Signs (Past 12 Hours) Vital Signs Temp Pulse Pulse Resp BP BP Pulse Ox 02/15/21 23:50 37 C 93 H 18 144/90 H 02/15/21 18:58 36.6 C 105 H 16 124/81 98 <Tabby Lockwood MD, FACOG - Last Filed: 02/16/21 07:27> Co-Signing Physician Notes Resident Physician Supervision Note: I was present with Dr. June during the history and exam. I discussed the case with the resident and agree with the findings and plan as documented in the note. Any exceptions or clarifications are listed here: [None] Documented By: Tabby Lockwood MD, FACOG Resident Activity Tracking <Bin Olivares MD - Last Filed: 02/16/21 06:56> Resident Involvement: Resident Care Provided Care Provided: OB Delivery
[2021-02-16] MEDS: DOCUSATE SODIUM 100 MG CAP PO SCH (07:49)
[2021-02-16] MEDS: PRENATAL VITAMIN 1 TAB PO SCH (07:49)
[2021-02-16] MEDS: IBUPROFEN 600 MG TAB PO PRN (07:49)
[2021-02-16] MEDS: ESCITALOPRAM OXALATE 10 MG TAB PO SCH (09:18)
== END 2021-02-16 11:15 | disposition home or self-care (01) | DRG 807 ==
LOC: 4S1 07:38 → 4S2 02-15 00:15